=== PATIENT | female | born 1985 | race Caucasian/White ===

== ENCOUNTER 2024-05-10 07:31 | Emergency (ER) | payer SELFPAY ==
[2024-05-10 07:56] VITALS: BP 179/68
--- NOTE | 2024-05-10 08:17 | ED.GENMED ---
History of Present Illness
General
Chief Complaint: Crisis Evaluation
Time Seen by Provider: 05/10/24 08:02
History of Present Illness
History of Present Illness:
Patient presents to the emergency department with agitation and delusions. Notes history of psychosis with bipolar disorder. Notes history of substance use disorder. States she has a history of methamphetamine use that put her into a manic and
psychotic episode for 60 days earlier in the year. Notes that she was on Haldol but had negative side effects from this. She is currently on olanzapine but states she has not taken her meds in the last 5 days. She was feeling increasingly
paranoid and having paranoid delusions. She also reports using crack this morning. Denies suicidal ideations. Patient is tangential and paranoid and provide somewhat limited history.
Phy Exam
Physical Exam
Physical Exam:
General: Screaming, intermittently calm. Cooperative. Tangential.
Head: NCAT
Neck, Normal in appearance, no swelling
Respiratory: No Respiratory distress
Abdomen: No distension
Ext: no edema
Neuro: DEMARCO, AOx4
Psych: Anxious appearing. Intermittent bouts of agitation. Paranoid.
Skin: Normal color
Course
Orders/Labs/Results
Orders:
Orders
05/10/24 07:40
1:1 Observation - Suicide/ Violent Behavior As Directed
05/10/24 08:15
Crisis Consult Routine
Reason for Consult: psychosis,agitation
Lorazepam [Ativan] 1 mg PO NOW STA
05/10/24 08:28
Test Result ONCE
05/10/24 08:29
Risperidone [Risperdal] 1 mg PO NOW STA
05/10/24 08:37
HCG, Urine Qualitative Screen Urgent
Date Specimen was Collected: 05/10/24
Time Specimen was Collected: 08:29
Urinalysis Urgent
Date Specimen was Collected: 05/10/24
Time Specimen was Collected: 08:29
Comment: ADD ON
Urine Drug Abuse Screen Urgent
Date Specimen was Collected: 05/10/24
Time Specimen was Collected: 08:29
Urine Microscopic Urgent
Date Specimen was Collected: 05/10/24
Time Specimen was Collected: 08:29
GC Culture Urgent
YASIR Source: VAG
Specimen Description:
Date Specimen was Collected: 05/10/24
Time Specimen was Collected: 08:29
Comment: ADD ON
Urine Culture Urgent
YASIR Source: U
Specimen Description:
Date Specimen was Collected: 05/10/24
Time Specimen was Collected: 08:29
Comment: ADD ON
05/10/24 09:17
Add On- LAB Urgent
Tests Added?: urinalysis, urine culture, urine gc/chlamydia
05/10/24 Lunch
Regular
At Your Request: Limited Participation
Does patient need a safe tray?: Yes
05/10/24 10:54
COVID-19 Antigen Urgent
Source: Nasal Swab
05/10/24 13:16
Lorazepam [Ativan] 1 mg PO Q4HPRN PRN
05/10/24 22:00
Olanzapine [Zyprexa] 10 mg PO HS
Abnormal Lab Results
05/10/24
08:37
Urine Occult Blood 3+ A
(Negative)
Urine RBC >100 A /HPF
(0-2)
Urine WBC 6-10 A /HPF
(0-5)
Urine Bacteria Few A
(Negative)
U Marijuana (THC) Screen Positive H
(Negative)
Vital Signs
Initial and Last Documented VS:
Initial Vital Signs
Temp Pulse Resp BP Pulse Ox
98.1 F 105 26 179/68 98
05/10/24 07:56 05/10/24 07:56 05/10/24 07:56 05/10/24 07:56 05/10/24 07:56
Last Documented Vital Signs
Temp Pulse Resp BP Pulse Ox
98.1 F 93 18 151/92 100
05/10/24 07:56 05/10/24 10:00 05/10/24 14:00 05/10/24 10:00 05/10/24 10:00
*Critical Care Note
Total Time (30-74mins, 75-104mins- exclusive of procedures): Not Applicable
ED Attending Note
ED Attending Note
ED Attending Note:
Patient presents with decompensated psychiatric disorder in the setting of substance use. Will symptomatically support with p.o. medications and consult crisis counselor
Patient was seen and evaluated by the crisis team including the psychiatrist. Collateral information was obtained via patient's own psychiatrist. Patient with improvement in symptoms throughout stay in the emergency department. Not felt to be a
danger to herself or others at this time. Will discharge with close follow-up with her psychiatrist..
-
Portions of this chart may have been created with voice recognition software.� Occasional wrong word or��sound alike� substitutions may have occurred due to the inherent limitations of voice recognition software.
Discharge Plan
Departure
Patient Disposition: Home (Routine Discharge)
Date of Disposition: 05/10/24
Time of Disposition: 14:46
Patient with high blood pressure during this ER visit?: Yes
Discharge Problem:
Bipolar I disorder with marisol
Instructions: Bipolar disorder - Discharge instructions
Prescriptions:
No Action
olanzapine 10 mg Tablet
10 mg PO DAILY
Referrals:
UNKNOWN - PT DOES,NOT KNOW [Family Provider] -
Interventions
Interventions:
*Risk Screen - Suicide Last Done: 05/10/24 07:34
*General Assessment Last Done: 05/10/24 07:34
*Neglect/Abuse Screening Last Done: 05/10/24 07:34
ED- Fall Risk Assessment Last Done: 05/10/24 08:48
*Nursing Disposition Last Done: 05/10/24 14:53
ED-Psychological Assessment Last Done: 05/10/24 08:49
Discharge Date and Time
Discharge Date/Time: 05/10/24 14:53
Print Language: BAHRAINI
[2024-05-10] MEDS: ATIVAN 1 MG PO (08:31)
[2024-05-10 08:34] VITALS: BMI 41.3
[2024-05-10] MEDS: RISPERDAL 1 MG PO (08:55)
[2024-05-10 08:57] LABS: HCG, Urine Qualitative Screen Negative
--- NOTE | 2024-05-10 09:23 | PHANOTE ---
med rec ban(05/10/24)-given registration's difficulties with patient, compiled medication list from pharmacy records. No physician records to confirm medications.
[2024-05-10 09:24] LABS: Amphetamines Negative (Negative); Barbiturates Negative (Negative); Benzodiazepines Negative (Negative); Buprenorphine Negative (Negative); Cocaine Negative (Negative); Marijuana Positive (Negative); Methadone Negative (Negative); Methamphetamines Negative (Negative); Opiates Negative (Negative); Phencyclidine Negative (Negative); Tricyclic Antidepressants Negative (Negative)
[2024-05-10 10:00] VITALS: BP 151/92
[2024-05-10 11:16] LABS: COVID-19 Antigen Negative (Negative)
[2024-05-10 12:23] LABS: Urine Albumin Negative (Neg - Trace); Urine Bilirubin Negative (Negative); Urine Character Clear (Clear); Urine Color Yellow; Urine Glucose Negative (Negative); Urine Ketone Negative (Negative); Urine Leukocyte Negative (Negative); Urine Nitrite Negative (Negative); Urine Occult Blood 3+ (Negative); Urine Urobilinogen Negative (Neg - 1+)
[2024-05-10 12:37] LABS: Urine Red Blood Cell >100 /HPF (0-2); Urine Squamous Cell >30 /LPF (Few)
[2024-05-10 12:38] LABS: Urine Bacteria Few (Negative)
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
--- NOTE | 2024-05-10 14:52 | EDRN ---
received report on patient into Crisis 1 from room 35, before having a chance to meet the patient was notified by crisis team that patient was discharged and has left. This nurse didn't see the patient leave, was discharged by the psychiatrist.
== END 2024-05-10 14:53 | disposition home or self-care (01) ==
LOC: EMR 07:31
PROVIDERS: EMERGENCY PHYSICIAN Emergency Medicine; OTHER PHYSICIAN Psychiatry & Neurology Psychiatry
DX: F31.9 Bipolar disorder, unspecified (principal); F30.9 Manic episode, unspecified; F22 Delusional disorders; R45.1 Restlessness and agitation; R03.0 Elevated blood-pressure reading, without diagnosis of hypertension; Z11.52 Encounter for screening for COVID-19; F19.10 Other psychoactive substance abuse, uncomplicated; Z88.8 Allergy status to other drugs, medicaments and biological substances
CPT/HCPCS: 99284; 80306; 81003; 81015; 81025; 87086; 87491; 87591; 87811

== ENCOUNTER 2025-03-09 07:30 | Emergency (ER) | payer SELFPAY ==
[2025-03-09 07:34] VITALS: BP 160/100
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
--- NOTE | 2025-03-09 08:04 | EDRN ---
crisis currently at the pts bedside
[2025-03-09] MEDS: ZYPREXA 10 MG PO (09:19)
[2025-03-09 09:20] VITALS: BMI 44.5
[2025-03-09 09:36] VITALS: BP 141/82
--- NOTE | 2025-03-09 10:03 | EDRN ---
the pt is pacing in the room however the pt is calm, the pt wants the ER door and curtain open to ED Bed #10, crisis is going to come back to the pts room to speak to the pt about inpatient versus outpatient
--- NOTE | 2025-03-09 10:58 | EDRN ---
crisis staff currently at the pts bedside
== END 2025-03-09 11:01 | disposition home or self-care (01) ==
LOC: EMR 07:30
PROVIDERS: EMERGENCY PHYSICIAN Student in an Organized Health Care Education/Training Program
DX: F31.9 Bipolar disorder, unspecified (principal); F41.9 Anxiety disorder, unspecified; F43.10 Post-traumatic stress disorder, unspecified; F20.9 Schizophrenia, unspecified
CPT/HCPCS: 99282